=== PATIENT | female | born 1940 | race Asian ===

== ENCOUNTER → 2016-05-28 | Day surgery (SDC) | payer OTHER, MEDICARE ==
[~2016-05-28] VITALS: Ht 154.9 cm; Wt 58.5 kg
[2016-05-28] VITALS (10 sets, daily range): BP systolic 146–174; BP diastolic 5–88
[~2016-05-28] MED LIST: AMLODIPINE BESYL5 MG ORAL; Akten 3.5% 1ml Btl ONE; BSS 15ml BTL ONE; BSS 500ml btl ONE; Dexamethasone 4mg/ml vial ONE; Diclofenac Sod 0.1% Op Soln ONE; EPINEPHrine 1mg/1ml Amp ONE; Gatifloxacin Opth Solution 0.5% ONE; LOSARTAN POTASS25 MG ORAL; LR 1000ml ONE; Lidocaine 1% MPF 10mg/ml 5ml ONE; METFORMIN HCL1000 M1 ORAL; Midazolam 2mg/2ml Inj ONE; NS Irrig 1000ml ONE; Phenylephrine 2.5% Op Soln ONE; Povidone-Iodine 5% opth solution ONE; SIMVASTATIN20 MG ORAL; Sodium Hyaluronate 14 mg/ml 0.85ml ONE; Sterile Water Irrig 1000ml IRRIG ONE; Tobradex Opth Susp 2.5ml ONE; Tropicamide 1% Opth Soln ONE
[2016-05-28] MEDS: Akten 3.5% 1ml Btl LEFT EYE SCH ×3 (07:26→07:51)
[2016-05-28] MEDS: Phenylephrine 2.5% Op Soln LEFT EYE SCH ×3 (07:26→07:51)
[2016-05-28] MEDS: Tropicamide 1% Opth Soln LEFT EYE SCH ×3 (07:26→07:51)
[2016-05-28] MEDS: Diclofenac Sod 0.1% Op Soln LEFT EYE SCH ×3 (07:26→07:51)
[2016-05-28] MEDS: Tobradex Opth Susp 2.5ml LEFT EYE SCH ×3 (07:27→07:51)
[2016-05-28] MEDS: Gatifloxacin Opth Solution 0.5% LEFT EYE SCH ×3 (07:27→07:52)
--- NOTE | 2016-05-28 07:41 | Pre-Procedure Note/Attestation ---
Pre-Procedure Note/Attestation Complete Prior to Procedure Planned Procedure: left Procedure Narrative: cataract extraction with implant left eye Indications for Procedure Pre-Operative Diagnosis: cataract left eye Attestation I attest that I discussed the nature of the procedure; its benefits; risks and complications; and alternatives (and the risks and benefits of such alternatives ), prior to the procedure, with the patient (or the patient's legal door to door sales representative). I attest that, if there was a reasonable possibility of needing a blood transfusion, the patient (or the patient's legal door to door sales representative) was given the [facility] standardized written summary, pursuant to the [place] Blood Safety Act ([place] Health and Safety Code # 1645, as amended). I attest that I re-evaluated the patient just prior to the surgery and that there has been no change in the patient's H&P, except as documented below: SHOBHA TYSON May 28, 2016 07:41
--- NOTE | 2016-05-28 08:34 | Anethesia Preoperative Eval ---
Anesthesia Pre-op PMH/ROS General Date of Evaluation: May 28, 2016 Time of Evaluation: 08:25 Anesthesiologist: Igor ASA Score: ASA 2 Mallampati Score Class I : Soft palate, uvula, fauces, pillars visible Class II: Soft palate, uvula, fauces visible Class III: Soft palate, base of uvula visible Class IV: Only hard plate visible Mallampati Classification: Class II Surgeon: Mando Diagnosis: Cataract left eye Surgical Procedure: cataract extraction left eye with IOL Anesthesia History: none Family History: no anesthesia problems Allergies: Coded Allergies: No Known Allergies (Unverified , 02/19/16) Medications: see eMAR Past Medical History Cardiovascular: Reports: HTN Pulmonary: Denies: COPD, SAMUEL, asthma, other Gastrointestinal/Genitourinary: Denies: CRI, ESRD, GERD, other Neurologic/Psychiatric: Denies: CVA, TIA, dementia, depression/anxiety, other Endocrine: Reports: DM HEENT: Reports: cataract (L) Hematology/Immune: Denies: DVT, anemia, bleeding disorder, other Musculoskeletal/Integumentary: Denies: DDD, DJD, OA, RA, edema, other PMH Narrative: HTN, DM PSxH Narrative: right cataract Anesthesia Pre-op Phys. Exam Physician Exam Last Vital Signs Date Time Temp Pulse Resp B/P Pulse Ox O2 Delivery O2 Flow Rate FiO2 05/28/16 07:31 98.1 58 20 174/88 100 Room Air Constitutional: NAD Neurologic: CN 2-12 intact Cardiovascular: RRR Respiratory: CTA Gastrointestinal: S/NT/ND Airway Exam Mallampati Score: Class II MO: full ROM: full Teeth: intact Dentures: no lower, no upper MARY SOTO D.O. May 28, 2016 08:34
--- NOTE | 2016-05-28 08:56 | Immediate Post-Op Evaluation ---
Immediate Post-Op Evalulation Immediate Post-Op Evalulation Procedure: left cataract extraction with IOL Date of Evaluation: May 28, 2016 Time of Evaluation: 08:56 IV Fluids: 300ml Blood Products: none Estimated Blood Loss: none Urinary Output: due to void Blood Pressure Systolic: 169 Blood Pressure Diastolic: 83 Pulse Rate: 61 Respiratory Rate: 16 O2 Sat by Pulse Oximetry: 99 Temperature (Fahrenheit): 98.7 Pain Score (1-10): 0 Nausea: No Vomiting: No Complications none Patient Status: awake, reacts Hydration Status: adequate Drug: n/a MARY SOTO D.O. May 28, 2016 08:56
--- NOTE | 2016-05-28 08:58 | Brief Operative Note ---
Immediate Post Operative Note Operative Note Pre-op Diagnosis: cataract left eye Procedure: phacoemulsification of cataract with implant left eye Post-op Diagnosis: same as pre-op Surgeon: anya [employer] Coach: none Anesthesiologist: tika vidal Anesthesia: MAC Specimen: none Complications: none Condition: stable Estimated Blood Loss: none Drains: none Implant(s) used?: Yes ANYA BANKS May 28, 2016 08:58
--- NOTE | 2016-05-28 09:01 | 48 Hour Post Anesthesia Eval ---
Post Anesthesia Evaluation Procedure: left cataract extraction with IOL Date of Evaluation: May 28, 2016 Time of Evaluation: 09:01 Blood Pressure Systolic: 168 0: 81 Pulse Rate: 58 Respiratory Rate: 16 Temperature (Fahrenheit): 98.6 O2 Sat by Pulse Oximetry: 98 Airway: patent Nausea: No Vomiting: No Pain Intensity: 0 Hydration Status: adequate Cardiopulmonary Status: stable Mental Status/LOC: patient returned to baseline Follow-up Care/Observations: as per surgeon Post-Anesthesia Complications: none Follow-up care needed: N/A MARY SOTO D.O. May 28, 2016 09:01
--- NOTE | 2016-05-28 12:57 | Operative Note - Dictated ---
DATE OF OPERATION: 05/28/2016 PREOPERATIVE DIAGNOSIS: Cataract, left eye. POSTOPERATIVE DIAGNOSIS: Cataract, left eye. PROCEDURE: Phacoemulsification of cataract, left eye with placement of posterior chamber intraocular lens. SURGEON: Osiel Gilmore M.D. CHIEF CONTROLLER: None. ANESTHESIA: MAC/topical. ANESTHESIOLOGIST: Sami Costa D.O. INDICATION FOR PROCEDURE: Poor vision, left eye. DESCRIPTION OF FINDINGS: Nuclear sclerotic and cortical cataract, left eye. DESCRIPTION OF PROCEDURE: The patient received a topical anesthetic block consisting of 3.5% Akten eyedrops. The eye was then prepped and draped in usual manner. The lid speculum was placed. An operating Zeiss microscope was positioned. A temporal corneal groove was made with a braeden blade. A SuperSharp blade made a stab incision at the 6 o'clock position. A 0.1 mL of 1% nonpreserved intracameral lidocaine was injected. Healon was instilled into the anterior chamber and a 2.5/2.8 mm trapezoidal braeden blade was used to complete the temporal corneal wound. A cystotome was used to create an anterior capsular flap. Utrata forceps were used to complete the capsulorrhexis. BSS on a cannula was used to hydrodissect the nucleus. The lens nucleus was phacoemulsified in a phaco-fracture technique. Remaining cortical material was removed with I/A and the posterior capsule was polished with the I/A on Cap vac. Healon was instilled in a capsular bag and the anterior chamber, and an Boyd foldable one-piece posterior intraocular lens model ZCB00, power 16.0 diopter, serial #[id number] was placed in the injector. The lens was put in the capsular bag. The I/A tip was used to remove the Healon and position the lens. The wound edge was hydrated with BSS and a blunt-tipped cannula. The wound was checked and found to be watertight. The lid speculum was removed and a drop of TobraDex and Zymaxid was placed. A clear plastic shield was taped over the eye. The patient tolerated the procedure well and left the operating room in good condition. Osiel Gilmore M.D. [place] [place]: Endy JOB#: [id number] CC: HONEY
== END | disposition home or self-care (01) ==
LOC: SUR 06:27
DX: H25.12 Age-related nuclear cataract, left eye (principal); H25.012 Cortical age-related cataract, left eye; E11.9 Type 2 diabetes mellitus without complications; I10 Essential (primary) hypertension; K21.9 Gastro-esophageal reflux disease without esophagitis; Z90.710 Acquired absence of both cervix and uterus
CPT/HCPCS: 66984; 82962; J0171; J1100; J2250; J7120; V2632; 94003; 94150